=== PATIENT | female | born 1985 | race Caucasian/White ===

== ENCOUNTER 2017-12-27 06:01 | Day surgery (SDC) | payer OTHER ==
[2017-12-27] MEDS ORDERED: PROPOFOL 40 ML (07:26)
[2017-12-27] MEDS ORDERED: PROPOFOL 20 ML (08:12)
== END 2017-12-27 11:08 | disposition home or self-care (01) ==
LOC: GIL 06:01
DX: K29.70 Gastritis, unspecified, without bleeding (principal); K64.8 Other hemorrhoids; J45.909 Unspecified asthma, uncomplicated
CPT/HCPCS: 43239; 88305; 88312